=== PATIENT | male | born 1965 | race Caucasian/White ===

== ENCOUNTER 2018-05-04 16:39 | Emergency (ER) | payer SELFPAY ==
[2018-05-04 17:00] VITALS: BP 136/92
--- NOTE | 2018-05-04 17:04 | ED Physician Documentation ---
Sore Throat/Dental Pain - HISTORIAN Historian: patient - HPI Stated Complaint: Tooth broke couple days prior Chief Complaint: Dental Pain Additional Information: Patient states that two days ago he was eating and he had a top molar fracture.No previous problems with that tooth. Has a dentist in [place] that he sees. 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 Is planning to go home in 5-7 days. Onset: days ago Context: Fractured Tooth Associated Symptoms: denies: fever, chills - ROS CONST: no problems - PAST HX Past History: none Other History: none, other (ORIF of ankle fracture, appendicitis.) Allergies/Adverse Reactions: Allergies Allergy/AdvReac Type Severity Reaction Status Date / Time No Known Allergies Allergy Verified 05/04/18 16:59 Home Medications: Ambulatory Orders Medication Instructions Recorded Clindamycin HCl [Cleocin HCl] 300 mg PO QID #28 capsule 05/04/18 Meloxicam [Mobic] 7.5 mg PO BID PRN #14 tablet 05/04/18 - SOCIAL HX Smoking History: greater than 1 pack/day Alcohol Use: rarely Drug Use: none - FAMILY HX Family History: No - VITAL SIGNS Vital Signs: Vital Signs Temp Pulse Resp BP Pulse Ox 98.6 F 92 H 16 136/92 05/04/18 16:39 05/04/18 16:39 05/04/18 16:39 05/04/18 16:39 - REVIEWED ASSESSMENTS Nursing Assessment Reviewed: Yes Vitals Reviewed: Yes Dental Pain Physical Exam - EXAM General Appearance: alert, mild distress Mouth/Throat: lips nml, gums nml, pharynx nml Ear/Nose: nml inspection Respiratory: no resp. distress, breath sounds nml. No: wheezes, rales, rhonchi CVS: reg. rate & rhythm Abdomen: soft, no organomegaly, normal bowel sounds, no abdominal bruit, no distension Extremities: non-tender Skin: warm/dry, normal color Neuro/Psych: none Discharge Clincal Impression: Infected dental carries Prescriptions: Clindamycin HCl [Cleocin HCl] 300 mg PO QID #28 capsule Meloxicam [Mobic] 7.5 mg PO BID PRN #14 tablet PRN Reason: Pain Referrals: Primary Doctor,No [Primary Care Provider] - 2 Days Additional Instructions: Make an appointment with dentist Take clindamycin 300mg 4 times a day Take Mobic 7.5mg with food twice a day. If you have any further problems see your primary care provider if not able to see your dentist. Condition: Stable Disposition: 01 HOME, SELF-CARE Decision to Admit: NO Date of Decison to Admit: 05/04/18 Decision Time: 17:15
== END 2018-05-04 17:25 | disposition home or self-care (01) ==
LOC: ED 16:39
DX: K04.7 Periapical abscess without sinus (principal)
CPT/HCPCS: 99283